=== PATIENT | female | born 1980 | race Hispanic/Latino ===

== ENCOUNTER 2019-08-26 16:37 | Emergency (ER) | payer BC, SELFPAY ==
[2019-08-26 19:51] LABS: #Lymphocytes 1.5 thou/uL (1.20-3.40); #Monocytes 0.4 thou/uL (0.11-0.59); %Basophils 0.5 % (0.0-1.0); %Eosinophils 0.4 % (0.0-10.0); %Lymphocytes 16.4 % (21.0-51.0); %Monocytes 4.2 % (0.0-10.0); %Neutrophils 78.5 % (42.0-75.0); Mean Corpuscular HGB CONC 34.9 g/dL (32.0-36.0); Mean Corpuscular Volume 88.8 fL (78.0-98.0); Mean Platelet Volume 7.4 fL (7.4-10.4); Platelet Count 400 thou/uL (130-400); RBC Distribution Width 11.7 % (11.5-14.5); Red Blood Cell (RBC) Count 4.52 mill/uL (4.20-5.40); White Blood Cell (WBC) Count 8.9 thou/uL (4.8-10.8)
[2019-08-26 21:52] LABS: Bilirubin Negative (Negative); Blood, Urine 3+ (Negative); Clarity Clear (Clear); Glucose, Urine (Dipstick) Normal (Negative); Ketone, Urine Negative (Negative); Leukocyte Negative Leu/uL (Negative); Nitrite Negative (Negative); Protein, Urine (Dipstick) Negative (Neg-Trace); RBC/HPF 0-3 HPF (0-3); Specific Gravity, Urine 1.003 (1.002-1.036); Squamous Epithelial 0-3 HPF (0-3); Urobilinogen Normal mg/dL (Less than 2); WBC/HPF None Seen HPF (0-3); pH, Urine 6.5 (5.0-9.0)
[2019-08-26 22:01] LABS: Bacteria/HPF None Seen HPF (None Seen)
[2019-08-26 22:24] LABS: ALT (SGPT) 25 U/L (8-55); AST (SGOT) 24 U/L (5-34); Albumin 4.3 g/dL (3.5-5.0); Alkaline Phosphatase 93 U/L (40-110); Anion Gap 16 mmol/L (10-20); BUN (Urea Nitrogen) 11 mg/dL (7.0-18.7); Bilirubin, Total 0.4 mg/dL (0.2-1.2); Calc. Creatinine Clearance 0 mL/min (70-130); Calcium 9.4 mg/dL (7.8-10.44); Carbon Dioxide 21 mmol/L (22-29); Chloride 105 mmol/L (98-107); Estimated GFR-MDRD Greater than 90; Globulin 3.6 g/dL (2.4-3.5); Glucose 97 mg/dL (70-105); Potassium 4.1 mmol/L (3.5-5.1); Protein, Total 7.9 g/dL (6.0-8.3); Sodium 138 mmol/L (136-145)
[2019-08-26] MEDS ORDERED: methylPREDNISolone Sod Succ/PF 125 MG/2 ML VIAL ONE (22:40)
[2019-08-26] MEDS ORDERED: Metoclopramide HCl 10 MG/2 ML VIAL ONE (22:40)
[2019-08-26] MEDS ORDERED: diphenhydrAMINE 50 MG/ML VIAL ONE (22:40)
--- NOTE | 2019-08-27 07:07 | CT ---
CT HEAD WITHOUT CONTRAST: Date: 08/26/2019 INDICATION: Headache. Vertigo. Nausea. No comparison. FINDINGS: Ventricles have normal size and position. There is no evidence of intracranial mass or hemorrhage. No evidence of infarct or edema. The paranasal sinuses and mastoids are well aerated and clear. Middle ear cavities appear clear. IMPRESSION: No acute process. POS: [facility]
== END 2019-08-27 00:22 | disposition home or self-care (01) ==
LOC: ERS 16:37
DX: R51 Headache (principal); F32.9 Major depressive disorder, single episode, unspecified; I95.9 Hypotension, unspecified
CPT/HCPCS: 36415; 70450; 80053; 81003; 81015; 84484; 85025; 93005; 96365; 96366; 96375; J1200; J2765; J2930

== ENCOUNTER 2020-05-01 15:10 | Outpatient (CLI) | payer BC | END 2020-05-01 15:11 | disposition home or self-care (01) | LOC: BICMAMMO 15:10 | PROVIDERS: ATTEND Family Medicine | DX: Z12.31 Encounter for screening mammogram for malignant neoplasm of breast (principal) | CPT/HCPCS: 77063; 77067 ==

== ENCOUNTER 2020-06-16 08:15 | Outpatient (CLI) | payer BC | END 2020-06-16 08:16 | disposition home or self-care (01) | LOC: BICULT 08:15 | PROVIDERS: ATTEND Internal Medicine Gastroenterology | DX: R10.10 Upper abdominal pain, unspecified (principal); K21.9 Gastro-esophageal reflux disease without esophagitis; K80.20 Calculus of gallbladder without cholecystitis without obstruction | CPT/HCPCS: 93975 ==

== ENCOUNTER 2020-11-13 08:14 | Emergency (ER) | payer BC, OTHER ==
[2020-11-13] MEDS ORDERED: Ketorolac Tromethamine 30 MG/ML VIAL ONE (08:59)
== END 2020-11-13 09:50 | disposition home or self-care (01) ==
LOC: ERS 08:14
DX: R07.89 Other chest pain (principal); M79.642 Pain in left hand; V89.2XXA Person injured in unspecified motor-vehicle accident, traffic, initial encounter
CPT/HCPCS: 29125; 36415; 71046; 72125; 84484; 93005; 96372; J1885

== ENCOUNTER 2021-05-17 21:17 | Emergency (ER) | payer BC ==
[2021-05-17 21:52] LABS: #Eosinphils 0.2 thou/uL (0.0-0.7); #Lymphocytes 1.8 thou/uL (1.20-3.40); #Monocytes 0.7 thou/uL (0.11-0.59); #Neutrophils 4.1 thou/uL (1.40-6.50); %Basophils 0.2 % (0.0-1.0); %Eosinophils 3.4 % (0.0-10.0); %Lymphocytes 26.7 % (21.0-51.0); %Monocytes 9.7 % (0.0-10.0); %Neutrophils 60.1 % (42.0-75.0); Hemoglobin 13.3 g/dL (12.0-16.0); Mean Corpuscular HGB CONC 34.9 g/dL (32.0-36.0); Mean Corpuscular Hemoglobin 32.1 pg (27.0-31.0); Mean Corpuscular Volume 91.8 fL (78.0-98.0); Mean Platelet Volume 6.8 fL (7.4-10.4); Platelet Count 294 thou/uL (130-400); RBC Distribution Width 11.4 % (11.5-14.5); Red Blood Cell (RBC) Count 4.14 mill/uL (4.20-5.40); White Blood Cell (WBC) Count 6.8 thou/uL (4.8-10.8)
[2021-05-17 21:58] LABS: Bacteria/HPF None Seen HPF (None Seen); Bilirubin Negative (Negative); Blood, Urine 2+ (Negative); Clarity Clear (Clear); Glucose, Urine (Dipstick) Normal (Negative); Ketone, Urine Negative (Negative); Leukocyte Negative Leu/uL (Negative); Nitrite Negative (Negative); Protein, Urine (Dipstick) Negative (Neg-Trace); RBC/HPF 0-3 HPF (0-3); Specific Gravity, Urine 1.008 (1.002-1.036); Squamous Epithelial 0-3 HPF (0-3); Urobilinogen Normal mg/dL (Less than 2); WBC/HPF None Seen HPF (0-3)
[2021-05-17 22:17] LABS: ALT (SGPT) 29 U/L (8-55); AST (SGOT) 28 U/L (5-34); Alkaline Phosphatase 87 U/L (40-110); Anion Gap 11 mmol/L (10-20); BUN (Urea Nitrogen) 9 mg/dL (7.0-18.7); Bilirubin, Total 0.2 mg/dL (0.2-1.2); Calc. Creatinine Clearance 0 mL/min (70-130); Calcium 8.7 mg/dL (7.8-10.44); Carbon Dioxide 23 mmol/L (22-29); Chloride 108 mmol/L (98-107); Globulin 2.9 g/dL (2.4-3.5); Glucose 90 mg/dL (70-105); Lipase 30 U/L (8-78); Potassium 3.5 mmol/L (3.5-5.1); Protein, Total 6.9 g/dL (6.0-8.3); Sodium 138 mmol/L (136-145)
[2021-05-17] MEDS ORDERED: Dicyclomine 20 MG TAB ONE (23:08)
[2021-05-17] MEDS ORDERED: Famotidine 20 MG TAB ONE (23:08)
[2021-05-17 23:28] LABS: BHCG - Serum Negative (NEGATIVE); Pregs Control Background? CLEAR/WHITE (CLR/WHITE); Pregs Control Bar Appear? YES (CONTROL BAR)
== END 2021-05-18 00:40 | disposition home or self-care (01) ==
LOC: ERS 21:17
DX: R10.84 Generalized abdominal pain (principal); Z87.19 Personal history of other diseases of the digestive system
CPT/HCPCS: 36415; 74176; 80053; 81003; 81015; 83690; 84703; 85025; 94760

== ENCOUNTER 2022-04-18 10:40 | Outpatient (CLI) | payer OTHER | END 2022-04-18 10:41 | disposition home or self-care (01) | LOC: TBSIIMAG 10:40 | PROVIDERS: ATTEND Family Medicine | DX: S49.92XD Unspecified injury of left shoulder and upper arm, subsequent encounter (principal) ==

== ENCOUNTER 2024-09-17 22:09 | Emergency (ER) | payer SELFPAY ==
[2024-09-17 23:15] LABS: #Basophils 0.03 10x3/uL (0.0-0.2); #Eosinophils 0.07 10x3/uL (0.0-0.7); #Monocytes 0.71 10x3/uL (0.11-0.59); #Neutrophils 5.22 10x3/uL (1.40-6.50); %Basophils 0.4 % (0.0-1.0); %Eosinophils 0.9 % (0.0-10.0); %Lymphocytes 21.6 % (21.0-51.0); %Monocytes 9.2 % (0.0-10.0); %Neutrophils 67.4 % (42.0-75.0); Hematocrit 37.8 % (36.0-47.0); Hemoglobin 13.0 g/dL (12.0-16.0); Mean Corpuscular Hemoglobin 30.4 pg (27.0-31.0); Mean Corpuscular Volume 88.5 fL (78.0-98.0); Platelet Count 275 10x3/uL (130-400); Red Blood Cell (RBC) Count 4.27 mill/uL (4.20-5.40); White Blood Cell (WBC) Count 7.74 10x3/uL (4.8-10.8)
[2024-09-17 23:30] LABS: BHCG - Serum Negative (NEGATIVE); Pregs Control Background? CLEAR/WHITE (CLR/WHITE); Pregs Control Bar Appear? YES (CONTROL BAR)
[2024-09-17 23:31] LABS: ALT (SGPT) 28 U/L (Less than 34); AST (SGOT) 27 U/L (11-34); Albumin 4.0 g/dL (3.1-4.5); Alkaline Phosphatase 78 U/L (40-110); Anion Gap 12 mmol/L (10-20); BUN (Urea Nitrogen) 9 mg/dL (7.0-18.7); Bilirubin, Total 0.4 mg/dL (0.3-1.2); Calc. Creatinine Clearance 0 mL/min (70-130); Calcium 8.8 mg/dL (7.8-10.44); Carbon Dioxide 21 mmol/L (22-29); Chloride 109 mmol/L (98-107); Globulin 3.1 g/dL (2.4-3.5); Glucose 100 mg/dL (70-105); Lipase 21 U/L (8-78); Potassium 3.9 mmol/L (3.5-5.1); Sodium 138 mmol/L (136-145)
[2024-09-18] MEDS ORDERED: Ketorolac Tromethamine 30 MG (1 mL) VIAL ONE (01:18)
[2024-09-18] MEDS ORDERED: Ondansetron PF 4 MG/2 ML Vial ONE (01:19)
[2024-09-18 02:11] LABS: Troponin I Less than 0.010 ng/mL (< 0.028)
[2024-09-18 04:12] LABS: Bacteria/HPF None Seen HPF (None Seen); CAUTI Indications for Culture Dysuria,urgency,freq; Glucose, Urine (Dipstick) Normal (Negative); Leukocyte Negative Leu/uL (Negative); Protein, Urine (Dipstick) Negative (Neg-Trace); RBC/HPF 0-3 HPF (0-3); Specific Gravity, Urine 1.042 (1.002-1.036); WBC/HPF 0-3 HPF (0-3)
[2024-09-18 04:13] LABS: Urine Culture Reflex No No
[2024-09-18] MEDS ORDERED: Iopamidol 370 76% 100 ML VIAL ONE (09:38)
== END 2024-09-18 05:15 | disposition home or self-care (01) ==
LOC: ERS 22:09
DX: R10.84 Generalized abdominal pain (principal); R11.0 Nausea
CPT/HCPCS: 36415; 74177; 80053; 81001; 83690; 84484; 84703; 85025; 93005; 96374; 96375; J1885; J2270; J2405; Q9967